=== PATIENT | male | born 1990 | race Caucasian/White ===

== ENCOUNTER 2019-12-19 08:15 | Emergency (ER) | payer OTHER ==
[~2019-12-19] VITALS: Ht 182.9 cm; Wt 77.1 kg
[2019-12-19] MEDS ORDERED: SENNA-DOCUSATE1 EAC1 PO (10:01)
[2019-12-19] MEDS ORDERED: ZOFRAN ODT4 MG PO (10:01)
[2019-12-19] MEDS ORDERED: NORCO 7.5-3251 EACH PO (10:01)
[2019-12-19 10:17] VITALS: BP 162/70
== END 2019-12-19 10:19 | disposition home or self-care (01) ==
LOC: ER 08:15
DX: S42.022A Displaced fracture of shaft of left clavicle, initial encounter for closed fracture (principal); V19.9XXA Pedal cyclist (driver) (passenger) injured in unspecified traffic accident, initial encounter; Y93.89 Activity, other specified; Y92.89 Other specified places as the place of occurrence of the external cause; Y99.8 Other external cause status